=== PATIENT | male | born 1995 | race African-American/Black ===

== ENCOUNTER 2019-08-17 17:24 | Emergency (ER) | payer OTHER, SELFPAY ==
[2019-08-17 17:34] VITALS: BP 100/56; PULSE 102; RESP 20; TEMP 37.1; O2SAT 98
[2019-08-17 18:24] LABS: Strep Grp A by PCR Rapid Negative
[2019-08-17] MEDS: ONDANSETRON 4 MG ODT SL (19:46)
[2019-08-17] MEDS: KETOROLAC 60 MG/2 ML VIAL 30 MG IM (19:46)
--- NOTE | 2019-08-17 20:12 | ED_ITS ---
HPI - Fever <PRANAV Nascimento - Last Filed: 08/17/19 20:46> General Chief Complaint: Fever Stated Complaint: stomach hurts/everything hurts Time Seen by Provider: 08/17/19 19:22 Source: patient Mode of arrival: Ambulatory History of Present Illness HPI Narrative: The patient is a 23-year-old male nonsmoker with history of positive flu test 3 days ago who presents with a chief complaint of ?my body is eating itself alive.He states he'd a positive flu test 3 days ago, was seen at [place] [facility] on the for IV fluids. He states he started him on antibiotics, steroids, lidocaine Vicodin for his throat pain. He complains of general abdominal cramping and nausea. He states he has loose stools. No cough or congestion Related Data Previous Rx's Medication Instructions Recorded clindamycin HCl [Cleocin HCl] 300 mg PO Q8H 10 Days #30 cap 08/17/19 Allergies Allergy/AdvReac Type Severity Reaction Status Date / Time No Known Drug Allergies Allergy Verified 08/17/19 19:59 Review of Systems <PRANAV Nascimento - Last Filed: 08/17/19 20:46> Review of Systems Narrative: GENERAL: See HPI HEENT: See HPI RESPIRATORY: Denies dyspnea, cough, wheezing, hemoptysis, sputum. CARDIOVASCULAR: Denies chest pain, palpitations, orthopnea, edema, GASTROINTESTINAL: See HPI : Denies dysuria, frequency, incontinence, hematuria, urinary retention. MUSCULOSKELETAL: denies weakness, joint pain, or bony pain SKIN: Denies rash, skin lesions, or other NEUROLOGIC: Denies weakness, headache, numbness, change in speech, confusion, seizures, incoordination. PSYCHIATRIC: No concerning psychosocial issues. 12 point review of systems is negative except for those stated above Exam <PRANAV Nascimento - Last Filed: 08/17/19 20:46> Narrative Exam Narrative: GENERAL: This is a well-nourished, well-developed patient, no acute distress HEAD: Atraumatic. Normocephalic. No temporal or scalp tenderness. EYES: Pupils equal round and reactive. Extraocular motions intact. No scleral icterus. No injection or drainage. ENT: Nose without bleeding, purulent drainage or septal hematoma. Throat with erythema, +1 tonsillar hypertrophy and exudate. Uvula midline. Airway patent. Dry mucous membranes noted. Bilateral TMs pearly longoria. NECK: Trachea midline. No JVD or lymphadenopathy. Supple, nontender, no meningeal signs. CARDIOVASCULAR: Regular rate and rhythm without murmurs, gallops, or rubs. RESPIRATORY: Clear to auscultation. Breath sounds equal bilaterally. No wheezes, rales, or rhonchi. No cough. No increased respiratory effort. No accessory muscle use GASTROINTESTINAL: Abdomen soft, diffusely tender, nondistended. No hepato-splenomegaly, or palpable masses. Active bowel sounds all 4 quadrants. EXTREMITIES: No clubbing, cyanosis, or edema. No joint tenderness, effusion, or edema noted. BACK: Nontender without deformity or crepitance. No flank tenderness. NEURO: AOx3. SKIN: No rash or erythema on visible skin Initial Vital Signs Initial Vital Signs: Vital Signs Temperature 98.8 F 08/17/19 17:34 Pulse Rate 102 H 08/17/19 17:34 Respiratory Rate 20 08/17/19 17:34 Blood Pressure 100/56 L 08/17/19 17:34 Pulse Oximetry 98 08/17/19 17:34 <Monty Padilla MD - Last Filed: 08/18/19 00:00> Initial Vital Signs Initial Vital Signs: Vital Signs Temperature 98.8 F 08/17/19 17:34 Pulse Rate 102 H 08/17/19 17:34 Respiratory Rate 20 08/17/19 17:34 Blood Pressure 100/56 L 08/17/19 17:34 Pulse Oximetry 98 08/17/19 17:34 Course <USMAN Nascimento - Last Filed: 08/17/19 20:46> Orders Ordered: ED Orders 08/17/19 17:37 Strep Grp A by PCR Rapid Stat 08/17/19 20:40 Throat Culture Stat 08/17/19 20:43 XR acute abdomen series Stat 08/17/19 20:52 Amylase Stat Complete Blood Count AUTO DIFF Stat Comprehensive Metabolic Panel Stat Lipase Stat 08/17/19 21:06 Urine Drug Screen, Rapid Stat Sodium Chloride (Normal Saline 0.9%) 250 mls @ 21 mls/hr IV Q24H PRN PRN Reason: Flush Discontinued Medications Al Hydrox/Mg Hydrox/Simethicone 20 ml/ Lidocaine HCl 15 ml 0 ml PO NOW ONE Stop: 08/17/19 20:24 Last Admin: 08/17/19 20:24 Dose: 35 ml Documented by: ANDREW Dexamethasone (Decadron) 10 mg IV NOW ONE Stop: 08/17/19 22:43 Last Admin: 08/17/19 22:51 Dose: Not Given Documented by: ASHLYN Sodium Chloride (Normal Saline 0.9%) 1,000 mls @ 1,000 mls/hr IV BOLUS ONE Stop: 08/17/19 21:22 Last Infusion: 08/17/19 22:03 Dose: 0 mls/hr Documented by: Admin: 08/17/19 20:23 Dose: 1,000 mls/hr Documented by: ANDREW Clindamycin Phosphate 900 mg/ (Dextrose) 56 mls @ 112 mls/hr IV NOW ONE Stop: 08/17/19 22:14 Last Admin: 08/17/19 22:53 Dose: Not Given Documented by: ASHLYN Dexamethasone 20 mg/ Sodium (Chloride) 55 mls @ 220 mls/hr IV NOW ONE Stop: 08/17/19 22:16 Last Infusion: 08/17/19 23:37 Dose: 0 mls/hr Documented by: Admin: 08/17/19 22:50 Dose: 220 mls/hr Documented by: ASHLYN Clindamycin Phosphate (Cleocin) 900 mg in 50 mls @ 50 mls/hr IV NOW ONE Stop: 08/17/19 23:27 Last Infusion: 08/17/19 23:43 Dose: 0 mls/hr Documented by: Admin: 08/17/19 22:38 Dose: 50 mls/hr Documented by: BELKIS Ketorolac Tromethamine (Toradol) 30 mg IM NOW ONE Stop: 08/17/19 19:34 Last Admin: 08/17/19 19:46 Dose: 30 mg Documented by: MORGAN Ketorolac Tromethamine (Toradol) 30 mg IV NOW ONE Stop: 08/17/19 22:14 Last Admin: 08/17/19 22:17 Dose: Not Given Documented by: ASHLYN Ondansetron HCl (Zofran Odt) 4 mg SL NOW ONE Stop: 08/17/19 19:34 Last Admin: 08/17/19 19:46 Dose: 4 mg Documented by: MORGAN Vital Signs Vital signs: Vital Signs - 8 hr 08/17/19 17:34 08/17/19 21:10 Temperature 98.8 F 98.4 F Pulse Rate 102 H 104 H Respiratory Rate 20 16 Blood Pressure 100/56 L Blood Pressure [Right Arm] 98/59 L Pulse Oximetry 98 94 <Monty Padilla MD - Last Filed: 08/18/19 00:00> Course Course Narrative: 22:00 08/17/2019. Care was initiated by BREANNE Lazo. I assumed care at the end of BREANNE Lazo's shift. The medical record was reviewed. His lab values reviewed. I interviewed and examined the patient. He has been ill for 2 weeks. Care was initiated at [facility] several days ago. He is on Keflex and Decadron. He basically is not improving. His evaluation here was reviewed. On my exam, the patient does not look acutely ill. He is afebrile. On the your pharyngeal exam he has tonsillar hypertrophy with erythema. He has no trismus. There is purulent fluid draining from a site adjacent to the left tonsil. On palpation, induration is present indicating a peritonsillar abscess. After the palpation there is additional discharge from the area. He has no dental pain. Neck reveals bilateral anterior lymphadenopathy, no meningeal signs. He has received Toradol. I gave Decadron 20 mg IV, and clindamycin 900 mg IV for peritonsillar abscess. He is feeling some better he'll be discharged on clindamycin, and Decadron. He can take Tylenol or Advil as needed for pain. He is active duty, [place]. He will need to follow-up with his [place] doctor to arrange ENT consultation. He can return here as necessary Maykel JACKSON Orders Ordered: ED Orders 08/17/19 17:37 Strep Grp A by PCR Rapid Stat 08/17/19 20:40 Throat Culture Stat 08/17/19 20:43 XR acute abdomen series Stat 08/17/19 20:52 Amylase Stat Complete Blood Count AUTO DIFF Stat Comprehensive Metabolic Panel Stat Lipase Stat 08/17/19 21:06 Urine Drug Screen, Rapid Stat Sodium Chloride (Normal Saline 0.9%) 250 mls @ 21 mls/hr IV Q24H PRN PRN Reason: Flush Discontinued Medications Al Hydrox/Mg Hydrox/Simethicone 20 ml/ Lidocaine HCl 15 ml 0 ml PO NOW ONE Stop: 08/17/19 20:24 Last Admin: 08/17/19 20:24 Dose: 35 ml Documented by: ANDREW Dexamethasone (Decadron) 10 mg IV NOW ONE Stop: 08/17/19 22:43 Last Admin: 08/17/19 22:51 Dose: Not Given Documented by: ASHLYN Sodium Chloride (Normal Saline 0.9%) 1,000 mls @ 1,000 mls/hr IV BOLUS ONE Stop: 08/17/19 21:22 Last Infusion: 08/17/19 22:03 Dose: 0 mls/hr Documented by: Admin: 08/17/19 20:23 Dose: 1,000 mls/hr Documented by: ANDREW Clindamycin Phosphate 900 mg/ (Dextrose) 56 mls @ 112 mls/hr IV NOW ONE Stop: 08/17/19 22:14 Last Admin: 08/17/19 22:53 Dose: Not Given Documented by: ASHLYN Dexamethasone 20 mg/ Sodium (Chloride) 55 mls @ 220 mls/hr IV NOW ONE Stop: 08/17/19 22:16 Last Infusion: 08/17/19 23:37 Dose: 0 mls/hr Documented by: Admin: 08/17/19 22:50 Dose: 220 mls/hr Documented by: ASHLYN Clindamycin Phosphate (Cleocin) 900 mg in 50 mls @ 50 mls/hr IV NOW ONE Stop: 08/17/19 23:27 Last Infusion: 08/17/19 23:43 Dose: 0 mls/hr Documented by: Admin: 08/17/19 22:38 Dose: 50 mls/hr Documented by: BELKIS Ketorolac Tromethamine (Toradol) 30 mg IM NOW ONE Stop: 08/17/19 19:34 Last Admin: 08/17/19 19:46 Dose: 30 mg Documented by: MORGAN Ketorolac Tromethamine (Toradol) 30 mg IV NOW ONE Stop: 08/17/19 22:14 Last Admin: 08/17/19 22:17 Dose: Not Given Documented by: ASHLYN Ondansetron HCl (Zofran Odt) 4 mg SL NOW ONE Stop: 08/17/19 19:34 Last Admin: 08/17/19 19:46 Dose: 4 mg Documented by: MORGAN Vital Signs Vital signs: Vital Signs - 8 hr 08/17/19 17:34 08/17/19 21:10 Temperature 98.8 F 98.4 F Pulse Rate 102 H 104 H Respiratory Rate 20 16 Blood Pressure 100/56 L Blood Pressure [Right Arm] 98/59 L Pulse Oximetry 98 94 MDM - Fever <BRUCE Nascimento- - Last Filed: 08/17/19 20:46> Lab Data Result diagrams: 08/17/19 20:52 08/17/19 20:52 Labs: Lab Results 08/17/19 08/17/19 08/17/19 Range/Units 17:37 20:52 20:52 WBC 14.3 H (4.5-11.0) X10^3/uL RBC 5.43 (4.5-5.9) X10^6/uL Hgb 12.7 L (13.5-17.5) g/dL Hct 39.2 L (41-53) % MCV 72.2 L (80-100) fL MCH 23.5 L (26-34) PG MCHC 32.5 (30-36) % RDW 14.2 (11.6-14.8) % Plt Count 246 (150-400) X10^3/uL Neut % (Auto) 60.9 (50-75) % Lymph % (Auto) 22.9 L (25-40) % [place] % (Auto) 14.4 H (3-14) % Eos % (Auto) 1.2 L (2-4) % Baso % (Auto) 0.6 (0-2) % Neut # (Auto) 8700 H (7215-7555) /uL Lymph # (Auto) 3300 (3241-4501) /uL [place] # (Auto) 2000 H (0-900) /uL Eos # (Auto) 200 (0-450) /uL Baso # (Auto) 100 (0-100) /uL Sodium 135 L (137-145) mmol/L Potassium 3.7 (3.4-5.1) mmol/L Chloride 99 (98-107) mmol/L Carbon Dioxide 25 (22-32) mmol/L BUN 19 (9-20) mg/dL Creatinine 0.90 (0.66-1.25) mg/dL Estimated GFR > 60.0 (>60) mL/min BUN/Creatinine Ratio 21.1 (6-22) Glucose 91 (70-100) mg/dL Calcium 9.2 (8.4-10.2) mg/dL Total Bilirubin 1.5 H (0.2-1.3) mg/dL AST 24 (17-59) IU/L ALT 14 (<50) IU/L Alkaline Phosphatase 45 (38-126) U/L Total Protein 7.7 (6.3-8.2) g/dL Albumin 4.0 (3.5-5.0) g/dL Globulin 3.7 (1.7-4.1) g/dL Albumin/Globulin Ratio 1.1 (1.0-2.8) Amylase 50 (30-110) U/L Lipase 39 (23-300) U/L Group A Strep (PCR) Negative MDM Narrative Medical decision making narrative: The patient is a 23-year-old male who presents with a chief complaint of my body is eating itself.He has recent diagnosis of flu, tonsillitis at an outside facility is taking antibiotics, steroids, lidocaine, Vicodin. He was noted to have dry mucous membranes on exam, so IV lab work was obtained. Given the appearance of his throat, throat culture was taken. The patient is on cephalexin 500 mg t.i.d. at this point [place] as started by an outside facility for presumptive tonsillitis strep. Given his new abdominal pain, IV and lab work were ordered. It is possible that his general malaise could be related to his recent flu positive diagnosis. Patient was signed out to Dr. Padilla at 8:30 p.m., with lab work pending. <Monty Padilla MD - Last Filed: 08/18/19 00:00> Lab Data Labs: Lab Results 08/17/19 08/17/19 08/17/19 Range/Units 17:37 20:52 20:52 WBC 14.3 H (4.5-11.0) X10^3/uL RBC 5.43 (4.5-5.9) X10^6/uL Hgb 12.7 L (13.5-17.5) g/dL Hct 39.2 L (41-53) % MCV 72.2 L (80-100) fL MCH 23.5 L (26-34) PG MCHC 32.5 (30-36) % RDW 14.2 (11.6-14.8) % Plt Count 246 (150-400) X10^3/uL Neut % (Auto) 60.9 (50-75) % Lymph % (Auto) 22.9 L (25-40) % [place] % (Auto) 14.4 H (3-14) % Eos % (Auto) 1.2 L (2-4) % Baso % (Auto) 0.6 (0-2) % Neut # (Auto) 8700 H (4408-4614) /uL Lymph # (Auto) 3300 (3919-8013) /uL [place] # (Auto) 2000 H (0-900) /uL Eos # (Auto) 200 (0-450) /uL Baso # (Auto) 100 (0-100) /uL Sodium 135 L (137-145) mmol/L Potassium 3.7 (3.4-5.1) mmol/L Chloride 99 (98-107) mmol/L Carbon Dioxide 25 (22-32) mmol/L BUN 19 (9-20) mg/dL Creatinine 0.90 (0.66-1.25) mg/dL Estimated GFR > 60.0 (>60) mL/min BUN/Creatinine Ratio 21.1 (6-22) Glucose 91 (70-100) mg/dL Calcium 9.2 (8.4-10.2) mg/dL Total Bilirubin 1.5 H (0.2-1.3) mg/dL AST 24 (17-59) IU/L ALT 14 (<50) IU/L Alkaline Phosphatase 45 (38-126) U/L Total Protein 7.7 (6.3-8.2) g/dL Albumin 4.0 (3.5-5.0) g/dL Globulin 3.7 (1.7-4.1) g/dL Albumin/Globulin Ratio 1.1 (1.0-2.8) Amylase 50 (30-110) U/L Lipase 39 (23-300) U/L Group A Strep (PCR) Negative Discharge Plan Departure Patient Disposition: Home Clinical Impression: Abscess, peritonsillar Instructions: DI for Peritonsillar Abscess -- Adult Activity Restrictions/Additional Instructions: Stop the Keflex. Cleocin 3 mg 3 times daily for the next 10 days. Continue current prescription of Decadron. Take Tylenol or Advil as needed for pain. I will give you a referral to an ENT specialist, . Follow-up with her doctor, or go to the office at the [facility] to arrange the consult. Return the ER if symptoms escalate. Prescriptions: New clindamycin HCl [Cleocin HCl] 300 mg capsule 300 mg PO Q8H 10 Days Qty: 30 RF: 0 Referrals: [facility] [Provider Group] Janusz Garces MD [Physician] - Stand Alone Forms: Work Release Note
[2019-08-17] MEDS: SODIUM CHLORIDE 0.9% 1,000 ML 1000 ML IV (20:23)
[2019-08-17] MEDS: MAG HYDROX/ALUMINUM/SIMETH SUS 20 ML, LIDOCAINE VISCOUS 2% 15 ML PO (20:24)
--- NOTE | 2019-08-17 20:43 | DI.RAD.S_ITS ---
PROCEDURE: XR ACUTE ABDOMEN SERIES INDICATIONS: abd pain TECHNIQUE: One view chest and two views of the abdomen were acquired. COMPARISON: None. FINDINGS: Surgical changes and devices: None. Chest: Lungs are clear. Heart size is normal. No pleural effusions. No pneumoperitoneum. Abdomen: Bowel gas pattern is normal. No suspicious calcifications. Visualized solid organ contours appear normal. Bones: No suspicious bony lesions. IMPRESSION: No evidence of bowel obstruction or gross free air. No acute cardiopulmonary pathology. Dictated by: Waylon Baer M.D. on 08/17/2019 at 21:26 Approved by: Waylon Baer M.D. on 08/17/2019 at 21:27
[2019-08-17 21:10] VITALS: BP 98/59; PULSE 104; RESP 16; TEMP 36.9; O2SAT 94
[2019-08-17 21:10] LABS: Add Manual Diff / Slide Review NO; Basophils Absolute Auto 100 /uL (0-100); Basophils Percent Auto 0.6 % (0-2); Eosinophils Absolute Auto 200 /uL (0-450); Eosinophils Percent Auto 1.2 % (2-4); Hematocrit 39.2 % (41-53); Hemoglobin 12.7 g/dL (13.5-17.5); Lymphocytes Absolute Auto 3300 /uL (1100-4500); Lymphocytes Percent Auto 22.9 % (25-40); Mean Corpuscular HGB Conc 32.5 % (30-36); Mean Corpuscular Hemoglobin 23.5 PG (26-34); Mean Corpuscular Volume 72.2 fL (80-100); Monocytes Absolute Auto 2000 /uL (0-900); Monocytes Percent Auto 14.4 % (3-14); Neutrophils Absolute Auto 8700 /uL (1500-7000); Neutrophils Percent Auto 60.9 % (50-75); Platelet Count 246 X10^3/uL (150-400); Red Blood Cell Count 5.43 X10^6/uL (4.5-5.9); Red Cell Distribution Width 14.2 % (11.6-14.8); White Blood Cell Count 14.3 X10^3/uL (4.5-11.0)
[2019-08-17 21:24] LABS: Alanine Aminotransferase 14 IU/L (<50); Albumin Globulin Ratio 1.1 (1.0-2.8); Alkaline Phosphatase 45 U/L (38-126); Amylase 50 U/L (30-110); Aspartate Aminotransferase 24 IU/L (17-59); BUN Creatinine Ratio 21.1 (6-22); Bilirubin Total 1.5 mg/dL (0.2-1.3); Blood Urea Nitrogen 19 mg/dL (9-20); Calcium 9.2 mg/dL (8.4-10.2); Carbon Dioxide 25 mmol/L (22-32); Chloride 99 mmol/L (98-107); Estimated Glomerular Filt Rate > 60.0 mL/min (>60); Globulin 3.7 g/dL (1.7-4.1); Glucose 91 mg/dL (70-100); HEMOLYSIS < 15 (0-50); Lipase 39 U/L (23-300); Potassium 3.7 mmol/L (3.4-5.1); Sodium 135 mmol/L (137-145); Total Protein 7.7 g/dL (6.3-8.2)
[2019-08-17] MEDS: CLINDAMYCIN 900 MG/50 ML PIGGYBACK 50 MG IV (22:38)
[2019-08-17] MEDS: dexAMETHasone 20 MG in SODIUM CHLORIDE 0.9% 50 ML 220 ML IV (22:50)
[2019-08-18 00:12] VITALS: BP 119/75; PULSE 89; RESP 16; O2SAT 98
== END 2019-08-18 00:12 | disposition home or self-care (01) ==
PROVIDERS: Nurse Practitioner Family; Emergency Provider Emergency Medicine
DX: J36 Peritonsillar abscess (principal)
CPT/HCPCS: 36415; 74022; 80053; 82150; 83690; 85025; 87070; 87651; 96361; 96365; 96368; 96372; 99283; 99284; J1100; J1885